=== PATIENT | male | born 1955 | race Caucasian/White ===

== ENCOUNTER 2017-10-02 05:17 | Day surgery (SDC) | payer OTHER ==
[~2017-10-02] VITALS: Ht 180.3 cm; Wt 73.9 kg
--- NOTE | ~2017-10-02 | O ---
[facility] [place] [address] OPERATIVE REPORT Name: TAWNYA NGO Room #: DEP [facility]#: [id number] Admission: 10/02/17 Attend Phys: Miguel Musa MD Discharge: 10/02/17 Date of : 57 Report #: [id number] THIS REPORT FOR: //name// CC: Soco Mensah DATE OF SERVICE: 10/02/[address] Miguel Musa and Dr. Soco Bahena. PREOPERATIVE DIAGNOSIS: Left inguinal hernia. POSTOPERATIVE DIAGNOSIS: Left inguinal hernia. PROCEDURE: Left inguinal hernia repair with Prolene hernia system mesh. SURGEON: Miguel Musa MD. ASSISTANT PROFESSOR OF NURSING: Ritika Silveira RN. ANESTHESIA: Local IV sedation. DESCRIPTION OF PROCEDURE: The patient was brought to the operating room and placed on the operative table in the supine position. Sequential compression device in place for DVT prophylaxis. There was no indication for preoperative antibiotics. The patient underwent IV sedation. Left inguinal area was prepped and draped in a sterile fashion. Skin and subcutaneous tissue were then infiltrated with 0.5% Marcaine and 1% Xylocaine in a 1:1 mixture. Left inguinal skin incision was then performed using #10 scalpel blade. Hemostasis obtained using electrocautery as well as clamps and 2-0 chromic ties. The external oblique fascia was then identified, incised with a knife and opened with the Metzenbaum scissors. The ilioinguinal nerve was identified, dissected free and preserved. The cord was then elevated and held into place with Saira drain. Cremasteric muscle fibers were then split in the direction of their fibers using clamp and electrocautery. There was no indirect inguinal hernia sac. There definitely was a widened dilated internal ring. The floor was also markedly weakened. The floor and internal ring area were then all opened, dissected free and an extended Prolene hernia system mesh was then inserted in this area and the underlay patch was then deployed in preperitoneal space. The floor was then tightened around the internal ring using running 2-0 Prolene 2 layer shouldice repair. The overlay patch was then deployed in the inguinal canal. The mesh was secured the pubic tubercle with the same running 2-0 Prolene suture. The mesh was then secured superiorly at the connector using simple interrupted 2-0 Vicryl sutures. The mesh was split, wrapped around the cord, secured to the inguinal ligament with simple interrupted 2-0 Vicryl suture. [facility] [address] [place] [address] OPERATIVE REPORT Name: TAWNYA NGO [facility] [id number] Admission: 10/02/17 Attend Phys: Miguel Musa MD Discharge: 10/02/17 Date of : 57 Report #: [id number] ilioinguinal nerve were then returned to the canal intact. The external oblique fascia was then closed using a running 2-0 Prolene suture. Layla's fascia was then reapproximated using 3 simple interrupted 2-0 chromic sutures and the skin then closed with a running 4-0 subcuticular Vicryl stitch. Wound was then dressed with Mastisol, 1/2-inch Steri-Strips cut in half, Telfa, 4 x 4 gauze, sponge and tape. The patient was then taken to recovery room awake, alert and in good condition. Estimated blood loss was approximately 5 mL and the patient tolerated procedure well. All sponge, lap, instrument counts correct x 2. <ELECTRONICALLY SIGNED> By: Miguel Musa MD 10/03/17 1403 1205 1232 Miguel Musa MD /nt
[~2017-10-02 05:17] MED LIST: FLOMAX0.4 MG PO; RANITIDINE HCL150 M1 PO; TRAMADOL 50 MG50 MG PO; [UNRECOGNIZED DRUG - OTHER] PO
[2017-10-02 08:51] VITALS: BP 155/91
[2017-10-02] MEDS ORDERED: HYDROCODONE-AP1 EAC6 PO (10:29)
== END 2017-10-02 12:30 | disposition home or self-care (01) ==
LOC: TBA 05:17 → OR 05:17
DX: K40.90 Unilateral inguinal hernia, without obstruction or gangrene, not specified as recurrent (principal); K21.9 Gastro-esophageal reflux disease without esophagitis; N40.0 Benign prostatic hyperplasia without lower urinary tract symptoms; Z98.890 Other specified postprocedural states; Z79.891 Long term (current) use of opiate analgesic
CPT/HCPCS: 50010; 50101; 50386; 50417; 54111; 56524; 56525; 56526; 56528; 62110; 62850; 70005